=== PATIENT | male | born 1950 | race African-American/Black ===

== ENCOUNTER 2019-02-08 16:06 | Observation (INO) | payer OTHER ==
--- NOTE | 2019-02-08 16:39 | RAD ---
EXAM: CHEST ONE VIEW HISTORY: Dyspnea. Hemodialysis catheter unable to be accessed at dialysis. COMPARISON: Study obtained from [facility] on 01/21/2019. FINDINGS: Dual lead left subclavian AICD device remains in place. Tunneled right internal jugular vein hemodial ysis catheter is also again seen. Cardiac silhouette and pulmonary vasculature are within normal limits. There is curvilinear density in the right midlung zone probably due to pleural thickening in the region of the minor fissure. Calcification again overlies the right lung base which may represent calcified granuloma. An oval shaped metallic foreign body again overlies the right hilar re gion. The lungs are otherwise clear. No pleural effusion or consolidation is seen. The osseous structures are intact. Vascular calcifications are seen in the thoracic aorta. IMPRESSION: 1. Resolution of pulmonary edema seen on prior exam. No acute cardiopulmonary process is seen on toda y's exam. 2. Right internal jugular vein hemodialysis catheter stable in position.
[2019-02-08 17:06] LABS: #Eosinphils 0.1 thou/uL (0.0-0.7); #Lymphocytes 0.9 thou/uL (1.20-3.40); #Monocytes 0.4 thou/uL (0.11-0.59); #Neutrophils 3.4 thou/uL (1.40-6.50); %Eosinophils 1.1 % (0.0-10.0); %Lymphocytes 19.2 % (21.0-51.0); %Monocytes 7.8 % (0.0-10.0); %Neutrophils 71.8 % (42.0-75.0); Hemoglobin 10.6 g/dL (14.0-18.0); Mean Corpuscular Hemoglobin 30.1 pg (27.0-31.0); RBC Distribution Width 14.9 % (11.5-14.5); Red Blood Cell (RBC) Count 3.53 mill/uL (4.70-6.10); White Blood Cell (WBC) Count 4.7 thou/uL (4.8-10.8)
[2019-02-08 17:19] LABS: ALT (SGPT) 170 U/L (8-55); AST (SGOT) 525 U/L (5-34); Albumin 2.6 g/dL (3.4-4.8); Alkaline Phosphatase 87 U/L (40-150); Anion Gap 12 mmol/L (10-20); BUN (Urea Nitrogen) 36 mg/dL (8.4-25.7); Bilirubin, Total 0.3 mg/dL (0.2-1.2); Calc. Creatinine Clearance 0 mL/min (70-130); Calcium 8.3 mg/dL (7.8-10.44); Carbon Dioxide 26 mmol/L (23-31); Chloride 106 mmol/L (98-107); Estimated GFR-MDRD 9; Globulin 3.1 g/dL (2.4-3.5); Glucose 98 mg/dL (80-115); Lipase 23 U/L (8-78); Potassium 4.4 mmol/L (3.5-5.1); Protein, Total 5.7 g/dL (5.8-8.1); Sodium 140 mmol/L (136-145)
[2019-02-08 17:25] LABS: MDiff Complete? YES; Mean Platelet Volume 7.3 fL (7.4-10.4); Ovalocytes SLIGHT = 2-5 cells (100X) (0-1/hpf); Platelet Count 104 thou/uL (130-400); Platelet Morphology Comment Appears Decreased; Polychromasia SLIGHT = 2-3 cells (100X) (0-2/hpf); Tear Drops SLIGHT = 2-5 cells (100X) (0-1/hpf)
[2019-02-08 17:46] LABS: CK (CPK) 13314 U/L (30-200)
[2019-02-08 17:56] LABS: CKMB 40.4 ng/mL (0-6.6)
[2019-02-08 17:59] LABS: HBSAg Index 0.83 S/CO (0-0.99); Hep B Surf Ag Non-Reactive S/CO (NonReactive)
[2019-02-08] MEDS ORDERED: Acetaminophen 325 MG TAB PO PRN (20:25)
[2019-02-08 20:32] LABS: Troponin I 0.212 ng/mL (< 0.028)
[2019-02-08 21:04] VITALS: BMI 21.5
[2019-02-08] MEDS ORDERED: Aspirin Chewable 81 MG TAB ONE (21:22)
[2019-02-08] MEDS ORDERED: Sterile Water 10 ML VIAL IVP SCH (22:30)
[2019-02-08] MEDS ORDERED: Activase 2 MG VIAL CATH SCH (22:30)
[2019-02-08 23:19] LABS: Troponin I 0.194 ng/mL (< 0.028)
[2019-02-09] MEDS ORDERED: traMADol HCl 50 MG TAB PO PRN (00:08)
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
[2019-02-09 05:09] LABS: #Eosinphils 0.1 thou/uL (0.0-0.7); #Lymphocytes 0.8 thou/uL (1.20-3.40); #Monocytes 0.4 thou/uL (0.11-0.59); #Neutrophils 2.4 thou/uL (1.40-6.50); %Basophils 0.2 % (0.0-1.0); %Eosinophils 2.2 % (0.0-10.0); %Lymphocytes 22.4 % (21.0-51.0); %Neutrophils 65.2 % (42.0-75.0); Hemoglobin 9.9 g/dL (14.0-18.0); Mean Corpuscular HGB CONC 31.8 g/dL (32.0-36.0); Mean Corpuscular Hemoglobin 30.2 pg (27.0-31.0); Mean Corpuscular Volume 94.9 fL (78.0-98.0); Mean Platelet Volume 7.6 fL (7.4-10.4); Platelet Count 97 thou/uL (130-400); RBC Distribution Width 15.2 % (11.5-14.5); Red Blood Cell (RBC) Count 3.28 mill/uL (4.70-6.10); White Blood Cell (WBC) Count 3.7 thou/uL (4.8-10.8)
[2019-02-09 05:11] LABS: PTT 28.9 SEC (22.9-36.1); Prothrombin Time 13.5 SEC (12.0-14.7)
[2019-02-09 05:29] LABS: ALT (SGPT) 147 U/L (8-55); AST (SGOT) 414 U/L (5-34); Albumin 2.4 g/dL (3.4-4.8); Alkaline Phosphatase 86 U/L (40-150); Anion Gap 17 mmol/L (10-20); BUN (Urea Nitrogen) 43 mg/dL (8.4-25.7); Bilirubin, Total 0.3 mg/dL (0.2-1.2); Calc. Creatinine Clearance 11 mL/min (70-130); Calcium 8.1 mg/dL (7.8-10.44); Carbon Dioxide 23 mmol/L (23-31); Chloride 106 mmol/L (98-107); Estimated GFR-MDRD 10; Globulin 2.9 g/dL (2.4-3.5); Glucose 107 mg/dL (80-115); Potassium 4.5 mmol/L (3.5-5.1); Protein, Total 5.3 g/dL (5.8-8.1); Sodium 141 mmol/L (136-145)
[2019-02-09 05:54] LABS: CK (CPK) 10618 U/L (30-200)
[2019-02-09] MEDS ORDERED: Heparin 10,000 UNITS/ 10 ML VIAL ONE (09:00)
[2019-02-09] MEDS ORDERED: Allopurinol 100 MG TAB PO SCH (09:00)
[2019-02-09] MEDS ORDERED: Aspirin 81 mg Enteric Coated Tablet PO SCH (09:00)
[2019-02-09] MEDS ORDERED: Lidocaine 5% Patch TD SCH (09:00)
[2019-02-09] MEDS ORDERED: Spironolactone 100 MG TAB PO SCH (09:00)
[2019-02-09] MEDS ORDERED: Potassium Chloride 20 MEQ TAB PO SCH (09:00)
[2019-02-09] MEDS: Midodrine HCl 5 MG TAB PO SCH ×3 (09:08→20:25)
[2019-02-09] MEDS ORDERED: Lidocaine Patch Removal 1 EACH TOP SCH (09:30)
[2019-02-09] MEDS ORDERED: HYDROcodone/Acetaminophen 10/325 mg Tablet PO SCH ×2 (09:45→18:30)
[2019-02-09 11:21] LABS: Acetaminophen Less than 6.0 mcg/mL (10.0-30.0)
--- NOTE | 2019-02-09 12:37 | CON ---
DATE OF CONSULTATION: REASON FOR CONSULTATION: Stage 6 chronic kidney disease on maintenance hemodialysis. HISTORY OF PRESENT ILLNESS: A 68-year-old gentleman, presented to the hospital with failed catheterization. The patient denies any nausea, vomiting, or chest pain. The patient dialyzes in [place] and is followed by Dr. Fields. PAST MEDICAL HISTORY: Congestive heart failure, CVA, lower extremity pain, walker dependent, cirrhosis, ascites, cardiac stent, abdominal surgery, and pacemaker placement. SOCIAL HISTORY: No alcohol or drug use. FAMILY HISTORY: Negative for ESRD. ALLERGIES: REVIEWED. HOME MEDICATION: Reviewed. HOSPITAL MEDICATION: Reviewed. REVIEW OF SYSTEMS: A 15-point review of system was performed negative except for positive noted above. GENERAL: HEAD: NECK: No swelling or lumps. NOSE: No epistaxis or discharge. EYES: No diplopia or pain. RESPIRATORY: CARDIOVASCULAR: GASTROINTESTINAL: /REHABILITATION SERVICES COUNSELOR: MUSCULOSKELETAL: No joint pain. NEUROPSYCHIATRIC SYSTEMS: No suicidal ideation. No ideation. SKIN: Denies any rash or ulcer. CONSTITUTIONAL: No fever or chills. PHYSICAL EXAMINATION: CONSTITUTIONAL: The patient is awake and alert. VITAL SIGNS: Afebrile. Pulse 83, breathing 16, and blood pressure 113/72. GENERAL APPEARANCE AND MENTAL STATUS: Fair. HEAD/NECK: Normocephalic. Atraumatic. EYES: EOMI. No deformity. EARS: Clear. No ulcers. NOSE: Intact. No lesions. MOUTH: Clear. No discharge. THROAT: Clear. No exudate. LUNGS: Clear. No crackles. CARDIAC: S1, S2. No rub. ABDOMEN: Benign. Bowel sounds positive. GENITALIA/RECTUM: Hung absent. BACK/EXTREMITIES: Edema 0+. NEUROLOGICAL: Alert and motor intact. SKIN: LYMPHATICS: LABORATORY DATA: Hemoglobin 9.9. Potassium 4.5. ASSESSMENT AND PLAN: Stage 6 chronic kidney disease with failed catheter, we will plan dialysis. Hypertension, stable. Anemia, stable. Medication based on GFR appropriate. Job ID: [id number]
[2019-02-09 19:32] VITALS: BP 110/67; TEMP 99.9
== END 2019-02-09 20:32 | disposition home or self-care (01) ==
LOC: ERS 16:06 → 2SW 20:04
PROVIDERS: ADMIT Family Medicine; ATTEND Family Medicine
DX: T82.41XA Breakdown (mechanical) of vascular dialysis catheter, initial encounter (principal); I13.2 Hypertensive heart and chronic kidney disease with heart failure and with stage 5 chronic kidney disease, or end stage renal disease; N18.6 End stage renal disease; I50.9 Heart failure, unspecified; D63.1 Anemia in chronic kidney disease; I25.10 Atherosclerotic heart disease of native coronary artery without angina pectoris; K74.60 Unspecified cirrhosis of liver; I25.2 Old myocardial infarction; G89.29 Other chronic pain; M79.605 Pain in left leg; Z86.73 Personal history of transient ischemic attack (TIA), and cerebral infarction without residual deficits; Z99.2 Dependence on renal dialysis; Z79.82 Long term (current) use of aspirin; Z79.899 Other long term (current) drug therapy; Z88.5 Allergy status to narcotic agent; Z88.6 Allergy status to analgesic agent; Z95.0 Presence of cardiac pacemaker; Z95.5 Presence of coronary angioplasty implant and graft; Z98.890 Other specified postprocedural states
CPT/HCPCS: 36415; 71045; 80053; 80307; 82550; 82553; 83690; 83880; 84443; 84484; 85025; 85610; 85730; 87340; 93005; A4216; G0378; J1644; J2997